=== PATIENT | male | born 1995 | race Two or more races ===

== ENCOUNTER 2017-08-23 08:34 | Emergency (ER) | payer MEDICAID ==
[~2017-08-23] VITALS: Ht 172.7 cm; Wt 111.7 kg
[2017-08-23] MEDS ORDERED: KETOROLAC 30 MG/1 ML IM ONE (09:00)
[2017-08-23] MEDS ORDERED: KETOROLAC 30 MG/1 ML ONE (10:15)
[2017-08-23 10:57] VITALS: BP 129/75
== END 2017-08-23 11:01 | disposition home or self-care (01) ==
LOC: ED 09:22
DX: S83.91XA Sprain of unspecified site of right knee, initial encounter (principal); S83.92XA Sprain of unspecified site of left knee, initial encounter; X50.1XXA Overexertion from prolonged static or awkward postures, initial encounter; Y93.89 Activity, other specified; Y92.89 Other specified places as the place of occurrence of the external cause; Y99.8 Other external cause status
CPT/HCPCS: 73564; 96372; 99284; J1885